=== PATIENT | female | born 1955 | race Two or more races ===

== ENCOUNTER → 2017-12-22 | Day surgery (SDC) | payer OTHER, MEDICAID ==
[2017-12-20 13:45] LABS: Urine Bacteria NONE SEEN /hpf (None Seen); Urine Blood 1+ /uL (Negative); Urine Mucus FEW (None Seen); Urine Specific Gravity 1.019 (1.001-1.035); Urine WBC <1 /hpf (0 - 5)
[2017-12-20 13:48] LABS: Basophils # (auto) 0 uL; Basophils % (auto) 0.4 % (0.0-2.0); Eosinophils # (auto) 0.1 uL; Eosinophils % (auto) 1.8 % (0.0-7.0); Hematocrit 42.9 % (36.0-46.0); Hemoglobin 14.1 g/dL (12.2-16.2); Lymphocytes # (auto) 2.7 uL; Lymphocytes % (auto) 44.8 % (10.0-50.0); Mean Corpuscular Hemoglobin 30.2 pg (28.0-32.0); Mean Corpuscular Hgb Conc. 32.9 g/dL (32.0-36.0); Mean Corpuscular Volume 91.7 fL (80.0-100.0); Monocytes # (auto) 0.4 uL; Monocytes % (auto) 7.5 % (0.0-12.0); Neutrophils # (auto) 2.7 uL; Neutrophils % (auto) 45.5 % (37.0-80.0); Platelet Count (auto) 185 10^3/uL (140-450); Red Blood Cells 4.67 10^6/uL (4.0-5.20); Red Cell Distribution Width 13.2 % (11.8-14.3)
[2017-12-20 14:01] LABS: Albumin 3.8 g/dL (3.4-5.0); BUN/Creatinine Ratio 23.6; Bilirubin, Total 0.5 mg/dL (0.2-1.0); Calcium 8.9 mg/dL (8.5-10.1); Potassium 4.2 mmol/L (3.5-5.1); Total Protein 7.5 g/dL (6.4-8.2)
[2017-12-20 14:04] LABS: INR 0.95 (0.9-1.15); Partial Thromboplastin Time 30.3 sec (22.64-33.71); Prothrombin Time 10.4 sec (9.37-12.3)
[~2017-12-22] VITALS: Ht 165.1 cm; Wt 79.4 kg
[~2017-12-22] MED LIST: BUPIVACAINE 0.75% INJ 10ML MPV SDV IJ ONE; DEXAMETHASONE SOD PHOS 10MG/1ML VIAL INJ ONE; HYDR-4683 PO; KETOROLAC TROMETH 30 MG/ML 1ML VIAL IV ONE; KETOROLAC TROMETH 30 MG/ML 1ML VIAL ONE; LABETALOL HCL 5 MG/ML 4ML SYRINGE IV PRN; MEPERIDINE HCL (50 MG/ML) 1 ML VIAL ONE; MIDAZOLAM HCL 1MG/1ML-2 ML VIAL IV PRN; MIDAZOLAM HCL 1MG/1ML-2 ML VIAL ONE; MORPHINE SULFATE 8mg/ml INJ SDV IV ONE; MORPHINE SULFATE 8mg/ml INJ SDV IV PRN; ONDANSETRON HCL 4 MG/2 ML VIAL IV ONE; PROPOFOL 10 MG/ML 20 ML IV ONE; TRAM50TA2 PO; ceFAZolin 1GM/50ML 50 ML IV ONE; ePHEDrine SULFATE 50 MG/ML AMP IV PRN; fentaNYL CITRATE 100 MCG/2 ML VL ONE
[2017-12-22 13:58] VITALS: BP 142/68
== END | disposition home or self-care (01) ==
LOC: SUR 08:21
PROVIDERS: ATTEND Podiatrist Foot & Ankle Surgery
DX: M20.12 Hallux valgus (acquired), left foot (principal); M21.612 Bunion of left foot; M20.42 Other hammer toe(s) (acquired), left foot; L84 Corns and callosities; M89.9 Disorder of bone, unspecified; E66.9 Obesity, unspecified; M19.90 Unspecified osteoarthritis, unspecified site; M81.0 Age-related osteoporosis without current pathological fracture; Z90.710 Acquired absence of both cervix and uterus; Z79.891 Long term (current) use of opiate analgesic
CPT/HCPCS: 28122; 28285; 28296; 36415; 73620; 80053; 81001; 85025; 85610; 85730; 88304; 88311; C1769; J0690; J1100; J1885; J2175; J2250; J2270; J2704; J3010; J3490

== ENCOUNTER → 2018-06-01 | Day surgery (SDC) | payer OTHER, MEDICAID ==
[2018-05-31 16:57] LABS: Basophils # (auto) 0 uL; Basophils % (auto) 0.4 % (0.0-2.0); Eosinophils # (auto) 0.2 uL; Eosinophils % (auto) 2.1 % (0.0-7.0); Hematocrit 41.4 % (36.0-46.0); Hemoglobin 14.2 g/dL (12.2-16.2); Lymphocytes # (auto) 3.2 uL; Lymphocytes % (auto) 39.8 % (10.0-50.0); Mean Corpuscular Hemoglobin 31.3 pg (28.0-32.0); Mean Corpuscular Hgb Conc. 34.2 g/dL (32.0-36.0); Mean Corpuscular Volume 91.5 fL (80.0-100.0); Monocytes # (auto) 0.6 uL; Monocytes % (auto) 7.9 % (0.0-12.0); Neutrophils % (auto) 49.8 % (37.0-80.0); Nucleated Red Blood Cells % 0.1 %; Platelet Count (auto) 188 10^3/uL (140-450); Red Blood Cells 4.53 10^6/uL (4.0-5.20)
[2018-05-31 17:14] LABS: INR 0.94 (0.9-1.15); Partial Thromboplastin Time 30.5 sec (23.78-33.04); Prothrombin Time 10.1 sec (9.27-12.13)
[2018-05-31 17:17] LABS: Albumin 3.6 g/dL (3.4-5.0); BUN/Creatinine Ratio 29.1; Calcium 8.5 mg/dL (8.5-10.1)
[2018-05-31 17:20] LABS: Bilirubin, Total 0.6 mg/dL (0.2-1.0); Total Protein 7.4 g/dL (6.4-8.2)
[~2018-06-01] VITALS: Ht 165.1 cm; Wt 81.6 kg
[~2018-06-01] MED LIST changes: +ALEN35TA18 PO; -DEXAMETHASONE SOD PHOS 10MG/1ML VIAL INJ ONE; -KETOROLAC TROMETH 30 MG/ML 1ML VIAL IV ONE; -KETOROLAC TROMETH 30 MG/ML 1ML VIAL ONE; -LABETALOL HCL 5 MG/ML 4ML SYRINGE IV PRN; +LIDOCAINE HCL 100 MG/5ML (2%) SYRG INJ IV ONE; -MEPERIDINE HCL (50 MG/ML) 1 ML VIAL ONE; -MIDAZOLAM HCL 1MG/1ML-2 ML VIAL IV PRN; +MORPHINE SULFATE 4 MG/ML SYR/VIAL IV PRN; -MORPHINE SULFATE 8mg/ml INJ SDV IV ONE; -MORPHINE SULFATE 8mg/ml INJ SDV IV PRN; +NALOXONE HCL 0.4 MG/ML VIAL IV PRN; +diphenhdrAMINE HCL 50 MG/1 ML VL ONE; -ePHEDrine SULFATE 50 MG/ML AMP IV PRN
[2018-06-01 13:42] VITALS: BP 140/75
== END | disposition home or self-care (01) ==
LOC: SUR 10:19
PROVIDERS: ATTEND Podiatrist Foot & Ankle Surgery
DX: L90.5 Scar conditions and fibrosis of skin (principal); T84.84XA Pain due to internal orthopedic prosthetic devices, implants and grafts, initial encounter; Z88.5 Allergy status to narcotic agent; Z88.6 Allergy status to analgesic agent; E66.9 Obesity, unspecified; M19.90 Unspecified osteoarthritis, unspecified site; M81.0 Age-related osteoporosis without current pathological fracture; Z90.710 Acquired absence of both cervix and uterus; Z98.890 Other specified postprocedural states; K21.9 Gastro-esophageal reflux disease without esophagitis; G47.33 Obstructive sleep apnea (adult) (pediatric); Y83.8 Other surgical procedures as the cause of abnormal reaction of the patient, or of later complication, without mention of misadventure at the time of the procedure; Y92.89 Other specified places as the place of occurrence of the external cause
CPT/HCPCS: 14040; 20680; 36415; 80053; 85025; 85610; 85730; 88300; 88304; J0690; J1200; J2250; J2704; J3010; J3490; L3260

== ENCOUNTER → 2021-07-23 | Outpatient (CLI) | payer OTHER, MEDICAID ==
[2021-07-23] VITALS (8 sets, daily range): BP systolic 114–127; BP diastolic 56–77
[~2021-07-23] VITALS: Ht 167.6 cm; Wt 73.9 kg
[~2021-07-23] MED LIST changes: +ACETAMINOPHEN 500 MG TAB PO ONE; -BUPIVACAINE 0.75% INJ 10ML MPV SDV IJ ONE; -HYDR-4683 PO; +HYDR-4833 PO; -LIDOCAINE HCL 100 MG/5ML (2%) SYRG INJ IV ONE; -MIDAZOLAM HCL 1MG/1ML-2 ML VIAL ONE; -MORPHINE SULFATE 4 MG/ML SYR/VIAL IV PRN; -NALOXONE HCL 0.4 MG/ML VIAL IV PRN; -ONDANSETRON HCL 4 MG/2 ML VIAL IV ONE; -PROPOFOL 10 MG/ML 20 ML IV ONE; +REGENERON 1200mg/250ml NS 250 ML IV ONE; -ceFAZolin 1GM/50ML 50 ML IV ONE; -diphenhdrAMINE HCL 50 MG/1 ML VL ONE; -fentaNYL CITRATE 100 MCG/2 ML VL ONE
== END | disposition home or self-care (01) ==
LOC: ER 12:00
PROVIDERS: ATTEND Internal Medicine
DX: U07.1 COVID-19 (principal); M81.0 Age-related osteoporosis without current pathological fracture; K21.9 Gastro-esophageal reflux disease without esophagitis; Z79.891 Long term (current) use of opiate analgesic
CPT/HCPCS: J7050; M0243; Q0244